=== PATIENT | female | born 1960 | race African-American/Black ===

== ENCOUNTER 2017-10-05 05:49 | Day surgery (SDC) | payer OTHER ==
[~2017-10-05] VITALS: Ht 160 cm; Wt 85.5 kg
[~2017-10-05 05:49] MED LIST: ALBU8.5H3 IH; ASPI-825 PO; BUPR100 PO; FLUT1DIS5 IH; GABA600T PO; LISI10TA7 PO; METF-444 PO; OMEP20 PO
[2017-10-05] MEDS ORDERED: EPINEPHrine 1:10,000 [1 MG/10 ML] SYRINGE IVP ONE (05:50)
[2017-10-05] MEDS ORDERED: LIDOCAINE HCL 2% 30 ML JELLY TP ONE (05:50)
[2017-10-05] MEDS ORDERED: LIDOCAINE HCL 4% 50 ML SOLUTION TP ONE (05:50)
[2017-10-05] MEDS ORDERED: BENZOCAINE 20% 50 MCG/SPRAY 57 GM TP ONE (05:50)
[2017-10-05] MEDS ORDERED: SODIUM CHLORIDE 0.9% 1,000 ML IV ONE ×2 (05:55→06:45)
[2017-10-05 06:55] LABS: GLUCOMETER DEV NAME(LOC) SDS 5; GLUCOSE,POINT OF CARE 142 MG/DL (70-110)
[2017-10-05] MEDS ORDERED: MIDAZOLAM HCL 2 MG/2 ML VIAL ONE (08:22)
[2017-10-05] MEDS ORDERED: FentaNYL CITRATE-PF 100 MCG/2 ML VIAL ONE (08:22)
[2017-10-05] MEDS ORDERED: MethylPREDNISolone SOD SUCC 125 MG/2 ML VIAL ONE (08:59)
[2017-10-05] MEDS ORDERED: MethylPREDNISolone SOD SUCC 125 MG/2 ML VIAL IVP ONE (09:00)
[2017-10-05] MEDS ORDERED: OXYGEN THERAPY IH SCH (20:00)
== END 2017-10-05 10:20 | disposition home or self-care (01) ==
LOC: SURGERY 05:49
PROVIDERS: ATTEND Internal Medicine Critical Care Medicine
DX: J38.4 Edema of larynx (principal); B37.0 Candidal stomatitis; J84.111 Idiopathic interstitial pneumonia, not otherwise specified; F17.210 Nicotine dependence, cigarettes, uncomplicated; E11.9 Type 2 diabetes mellitus without complications; J43.9 Emphysema, unspecified; Z90.710 Acquired absence of both cervix and uterus; Z88.3 Allergy status to other anti-infective agents; Z79.891 Long term (current) use of opiate analgesic; Z79.84 Long term (current) use of oral hypoglycemic drugs; Z72.89 Other problems related to lifestyle; Z79.82 Long term (current) use of aspirin; Z87.01 Personal history of pneumonia (recurrent); Z88.8 Allergy status to other drugs, medicaments and biological substances; Z79.899 Other long term (current) drug therapy; Z98.890 Other specified postprocedural states
CPT/HCPCS: 31623; 31624; 71045; 82962; 87015; 87070; 87077; 87186; 87205; 87206; 87220; 88108; 88312; J0171; J2250; J2930; J3010; J7030

== ENCOUNTER 2017-10-07 10:01 | Emergency (ER) | payer OTHER ==
[~2017-10-07] VITALS: Ht 154.9 cm; Wt 84.1 kg
[~2017-10-07 10:01] MED LIST changes: -ASPI-825 PO; -LISI10TA7 PO
[2017-10-07 10:10] VITALS: BP 127/84
[2017-10-07] MEDS ORDERED: METHOCARBAMOL 500 MG TABLET PO ONE (10:15)
[2017-10-07] MEDS ORDERED: KETOROLAC TROMETHAMINE 60 MG/2 ML VIAL IM ONE (10:15)
[2017-10-07 10:21] LABS: GLUCOSE,POINT OF CARE 146 MG/DL (70-110)
== END 2017-10-07 10:58 | disposition home or self-care (01) ==
LOC: EMS 10:02
DX: S39.012A Strain of muscle, fascia and tendon of lower back, initial encounter (principal); R73.9 Hyperglycemia, unspecified; F17.210 Nicotine dependence, cigarettes, uncomplicated; D25.9 Leiomyoma of uterus, unspecified; Z79.4 Long term (current) use of insulin; Z79.899 Other long term (current) drug therapy; Z88.8 Allergy status to other drugs, medicaments and biological substances; X50.1XXA Overexertion from prolonged static or awkward postures, initial encounter; Y93.89 Activity, other specified; Y92.89 Other specified places as the place of occurrence of the external cause; Y99.8 Other external cause status
CPT/HCPCS: 82962; 96372; 99283; J1885

== ENCOUNTER 2017-11-16 11:46 | Emergency (ER) | payer OTHER ==
[~2017-11-16] VITALS: Ht 154.9 cm; Wt 84.1 kg
[2017-11-16 12:05] LABS: GLUCOSE,POINT OF CARE 188 MG/DL (70-110)
[2017-11-16] MEDS ORDERED: IPRATROPIUM BROMIDE 0.5 MG/2.5 ML NEB SOLUTION NEB ONE (13:45)
[2017-11-16] MEDS ORDERED: ALBUTEROL SULFATE 2.5 MG/0.5 ML NEB SOLUTION NEB ONE (13:45)
[2017-11-16 14:58] VITALS: BP 110/67
== END 2017-11-16 15:00 | disposition home or self-care (01) ==
LOC: EMS 11:47
DX: J44.1 Chronic obstructive pulmonary disease with (acute) exacerbation (principal); F17.210 Nicotine dependence, cigarettes, uncomplicated; E11.9 Type 2 diabetes mellitus without complications; Z91.041 Radiographic dye allergy status; Z79.84 Long term (current) use of oral hypoglycemic drugs; Z79.899 Other long term (current) drug therapy; Z90.710 Acquired absence of both cervix and uterus; Z87.42 Personal history of other diseases of the female genital tract
CPT/HCPCS: 94640; 99283

== ENCOUNTER 2018-04-07 22:16 | Emergency (ER) | payer OTHER ==
[~2018-04-07] VITALS: Ht 154.9 cm; Wt 84.1 kg
[2018-04-07 22:48] LABS: GLUCOSE,POINT OF CARE 200 MG/DL (70-110)
[2018-04-08] MEDS ORDERED: IBUPROFEN 800 MG TABLET PO ONE (02:45)
[2018-04-08 03:06] VITALS: BP 132/70
== END 2018-04-08 03:57 | disposition home or self-care (01) ==
LOC: EMS 22:17
DX: S00.12XA Contusion of left eyelid and periocular area, initial encounter (principal); E11.9 Type 2 diabetes mellitus without complications; J44.9 Chronic obstructive pulmonary disease, unspecified; K21.9 Gastro-esophageal reflux disease without esophagitis; F32.9 Major depressive disorder, single episode, unspecified; F17.210 Nicotine dependence, cigarettes, uncomplicated; Z90.710 Acquired absence of both cervix and uterus; Z79.899 Other long term (current) drug therapy; Z91.041 Radiographic dye allergy status; W10.8XXA Fall (on) (from) other stairs and steps, initial encounter; Y93.89 Activity, other specified; Y92.89 Other specified places as the place of occurrence of the external cause; Y99.8 Other external cause status
CPT/HCPCS: 70450; 70486

== ENCOUNTER 2019-02-12 11:55 | Emergency (ER) | payer OTHER ==
[~2019-02-12] VITALS: Ht 154.9 cm; Wt 84.1 kg
[2019-02-12 13:32] LABS: BASOPHILS % (AUTO) 0.3 % (0.0-2.0); EOSINOPHILS % (AUTO) 0.9 % (1.0-6.0); HEMOGLOBIN 15.1 g/dL (12.0-16.0); LYMPHOCYTES # (AUTO) 1.4 K/uL (1.0-4.8); LYMPHOCYTES % (AUTO) 13.2 % (22.0-44.0); MEAN CORPUSCULAR HGB CONC 33.5 G/dL (31.0-37.0); MEAN CORPUSCULAR VOLUME 93 fL (80-100); MONOCYTES # (AUTO) 0.3 K/uL (0.1-1.0); MONOCYTES % (AUTO) 3.1 % (2.0-9.0); NEUTROPHILS # (AUTO) 8.9 K/uL (1.8-7.7); NEUTROPHILS % (AUTO) 82.5 % (40.0-70.0); PLATELET COUNT (AUTO) 270 K/uL (150-450); RED BLOOD CELL COUNT(AUTO) 4.87 MIL/uL (4.00-5.20); RED CELL DISTRIBUTION WIDTH 13.7 % (11.5-14.5)
[2019-02-12 14:01] LABS: ANION GAP 11 mmol/L (8-16); CALCIUM, TOTAL 9.1 mg/dL (8.8-10.5); CARBON DIOXIDE 25 mmol/L (22-29); CHLORIDE 103 mmol/L (98-107); CREATININE 0.88 mg/dL (0.60-1.30); GLOMERULAR FILTR. RATE CALC > 60 mL/min (>60); GLUCOSE,RANDOM 190 mg/dL (70-110); POTASSIUM 3.9 mmol/L (3.5-5.1); SODIUM SERUM 139 mmol/L (136-145); UREA NITROGEN, BLOOD 7 mg/dL (7-18)
[2019-02-12 14:03] LABS: B-TYPE NATRIURETIC PEPTIDE 13 pg/mL (0-100)
[2019-02-12 14:09] LABS: ALANINE AMINOTRANSFERASE 26 U/L (12-78); ALBUMIN 3.8 g/dL (3.4-5.0); ALKALINE PHOSPHATASE 109 U/L (46-116); ASPARTATE AMINOTRANSFERASE 13 U/L (15-37); BILIRUBIN,TOTAL 0.4 mg/dL (0.1-1.0); TOTAL PROTEIN, SERUM 7.4 g/dL (6.4-8.2)
[2019-02-12 14:49] VITALS: BP 127/74
== END 2019-02-12 15:09 | disposition home or self-care (01) ==
LOC: EMS 11:56
DX: J45.909 Unspecified asthma, uncomplicated (principal); R03.0 Elevated blood-pressure reading, without diagnosis of hypertension; E11.9 Type 2 diabetes mellitus without complications; F32.9 Major depressive disorder, single episode, unspecified; F17.210 Nicotine dependence, cigarettes, uncomplicated; Z88.8 Allergy status to other drugs, medicaments and biological substances; Z79.899 Other long term (current) drug therapy
CPT/HCPCS: 93005

== ENCOUNTER 2020-06-20 11:43 | Emergency (ER) | payer OTHER ==
[~2020-06-20] VITALS: Ht 154.9 cm; Wt 84.1 kg
[~2020-06-20 11:43] MED LIST changes: +BUPR-121 PO; -BUPR100 PO
[2020-06-20 14:25] VITALS: BP 127/71
[2020-06-20] MEDS: IBUPROFEN 600 MG TABLET PO ONE (14:33)
== END 2020-06-20 14:36 | disposition home or self-care (01) ==
LOC: EMS 12:24
DX: M54.2 Cervicalgia (principal); M25.512 Pain in left shoulder; M54.9 Dorsalgia, unspecified; J44.9 Chronic obstructive pulmonary disease, unspecified; F32.9 Major depressive disorder, single episode, unspecified; E11.9 Type 2 diabetes mellitus without complications; D25.9 Leiomyoma of uterus, unspecified; V49.9XXA Car occupant (driver) (passenger) injured in unspecified traffic accident, initial encounter; Y93.89 Activity, other specified; Y92.89 Other specified places as the place of occurrence of the external cause; Y99.8 Other external cause status
CPT/HCPCS: 99283

== ENCOUNTER 2021-04-24 05:53 | Day surgery (SDC) | payer OTHER ==
[~2021-04-24] VITALS: Ht 154.9 cm; Wt 75.0 kg
[2021-04-24] MEDS ORDERED: SODIUM CHLORIDE 0.9% 1,000 ML IV ONE (06:30)
[2021-04-24 06:54] LABS: COVID AG,FIA SOURCE NASAL SWAB
[2021-04-24] MEDS ORDERED: FentaNYL CITRATE PF 100 MCG/2 ML VIAL ONE (07:24)
[2021-04-24] MEDS ORDERED: MIDAZOLAM HCL 5 MG/ML VIAL ONE (07:25)
[2021-04-24 08:01] LABS: GLUCOMETER DEV NAME(LOC) SDS.; GLUCOSE,POINT OF CARE 88 MG/DL (70-110)
[2021-04-24] MEDS ORDERED: MethylPREDNISolone SOD SUCC 125 MG/2 ML VIAL ONE (09:06)
[2021-04-24] MEDS ORDERED: MethylPREDNISolone SOD SUCC 125 MG/2 ML VIAL IVP ONE (09:15)
[2021-04-24] MEDS ORDERED: OXYGEN THERAPY IH SCH (20:00)
== END 2021-04-24 11:15 | disposition home or self-care (01) ==
LOC: SURGERY 05:53
PROVIDERS: ATTEND Internal Medicine Critical Care Medicine
DX: J38.4 Edema of larynx (principal); B37.0 Candidal stomatitis; E11.9 Type 2 diabetes mellitus without complications; Z79.899 Other long term (current) drug therapy; Z90.710 Acquired absence of both cervix and uterus; Z98.890 Other specified postprocedural states
CPT/HCPCS: 31623; 31624; 71045; 82962; 87015; 87070; 87101; 87206; 87220; 87426; 88112; 88184; 88185; 88312; C9803; J2250; J2930; J3010

== ENCOUNTER 2021-06-02 09:53 | Emergency (ER) | payer OTHER ==
[~2021-06-02] VITALS: Ht 162.6 cm; Wt 96.0 kg
[~2021-06-02 09:53] MED LIST changes: -BUPR-121 PO; +BUPR-345 PO
[2021-06-02] MEDS ORDERED: ACETAMINOPHEN 500 MG TABLET PO ONE (12:15)
[2021-06-02] MEDS ORDERED: IBUPROFEN 600 MG TABLET PO ONE (12:15)
[2021-06-02 13:49] VITALS: BP 117/65
[2021-06-02] MEDS ORDERED: IBUP-2071 PO (13:53)
[2021-06-02] MEDS ORDERED: HYDR30OI13 TP (13:54)
== END 2021-06-02 14:22 | disposition home or self-care (01) ==
LOC: EMS 09:54
DX: S40.861A Insect bite (nonvenomous) of right upper arm, initial encounter (principal); S90.861A Insect bite (nonvenomous), right foot, initial encounter; J45.909 Unspecified asthma, uncomplicated; F32.9 Major depressive disorder, single episode, unspecified; E11.9 Type 2 diabetes mellitus without complications; K21.9 Gastro-esophageal reflux disease without esophagitis; F17.210 Nicotine dependence, cigarettes, uncomplicated; Z90.710 Acquired absence of both cervix and uterus; Z88.8 Allergy status to other drugs, medicaments and biological substances; Z79.84 Long term (current) use of oral hypoglycemic drugs; W57.XXXA Bitten or stung by nonvenomous insect and other nonvenomous arthropods, initial encounter; Y93.89 Activity, other specified; Y92.89 Other specified places as the place of occurrence of the external cause; Y99.8 Other external cause status
CPT/HCPCS: 82962; 99283

== ENCOUNTER 2022-09-13 07:21 | Day surgery (SDC) | payer OTHER ==
[~2022-09-13] VITALS: Ht 154.9 cm; Wt 74.9 kg
[~2022-09-13 07:21] MED LIST changes: +HYDR30OI13 TP; +IBUP-1493 PO; +SODIUM CHLORIDE 0.9% 1,000 ML IV ONE
[2022-09-13] MEDS ORDERED: ALBUTEROL SULFATE 2.5 MG/0.5 ML NEB SOLUTION NEB ONE (07:22)
[2022-09-13] MEDS ORDERED: BENZOCAINE 20% 50 MCG/SPRAY 57 GM TP ONE (07:22)
[2022-09-13] MEDS ORDERED: LIDOCAINE 2% 11 ML JELLY TP ONE (07:22)
[2022-09-13] MEDS ORDERED: LIDOCAINE 4% 50 ML SOLUTION TP ONE (07:22)
[2022-09-13] MEDS ORDERED: FentaNYL CITRATE PF 100 MCG/2 ML VIAL ONE (08:13)
[2022-09-13] MEDS ORDERED: MIDAZOLAM HCL 2 MG/2 ML VIAL ONE (08:14)
[2022-09-13 08:31] LABS: GLUCOMETER DEV NAME(LOC) SDS.
[2022-09-13] MEDS ORDERED: MethylPREDNISolone SOD SUCC 125 MG/2 ML VIAL IVP ONE (10:15)
== END 2022-09-13 11:30 | disposition home or self-care (01) ==
LOC: SURGERY 07:21
PROVIDERS: ATTEND Internal Medicine Critical Care Medicine
DX: J38.4 Edema of larynx (principal); B37.0 Candidal stomatitis; F17.210 Nicotine dependence, cigarettes, uncomplicated; M19.90 Unspecified osteoarthritis, unspecified site; J44.9 Chronic obstructive pulmonary disease, unspecified; E11.40 Type 2 diabetes mellitus with diabetic neuropathy, unspecified; Z79.899 Other long term (current) drug therapy; Z91.041 Radiographic dye allergy status; Z98.890 Other specified postprocedural states
CPT/HCPCS: 31623; 88112; 82962; 87206; 87101; 87220; 87070; 31624; 71045; 87015; J3010; J2250; J2930; Q9967; J7613; Z7610

== ENCOUNTER 2023-10-26 07:05 | Day surgery (SDC) | payer OTHER ==
[~2023-10-26] VITALS: Ht 154.9 cm; Wt 63.6 kg
[~2023-10-26 07:05] MED LIST changes: +ALBU18HF12 PO; -ALBU8.5H3 IH; +BACL20TA PO; +BUPR-113 PO; -BUPR-345 PO; +CETI10TA58 PO; +CHOL500013 PO; +DICL100G60 TP; +FAMO40TA7 PO; +FLUT16H NASAL; -FLUT1DIS5 IH; +GABA-1554 PO; -GABA600T PO; -HYDR30OI13 TP; -IBUP-1493 PO; +IBUP-2076 PO; +IBUP-2077 PO; +IPRA3AMP24 IH; +LISI2.5T13 PO; -METF-444 PO; +METF-446 PO; -OMEP20 PO; +PRAV40TA4 PO; -SODIUM CHLORIDE 0.9% 1,000 ML IV ONE; +SODIUM CHLORIDE 0.9% 1,000 ML ONE
[2023-10-26] MEDS ORDERED: LIDOCAINE 4% 50 ML SOLUTION TP ONE (07:06)
[2023-10-26] MEDS ORDERED: LIDOCAINE 2% 11 ML JELLY TP ONE (07:06)
[2023-10-26] MEDS ORDERED: BENZOCAINE 20% 50 MCG/SPRAY 57 GM TP ONE (07:06)
[2023-10-26] MEDS ORDERED: ALBUTEROL SULFATE 2.5 MG/0.5 ML NEB SOLUTION NEB ONE (07:06)
[2023-10-26 08:16] LABS: GLUCOMETER DEV NAME(LOC) SDS.; GLUCOSE,POINT OF CARE 121 MG/DL (70-110)
[2023-10-26] MEDS: SODIUM CHLORIDE 0.9% 1,000 ML IV ONE (08:18)
[2023-10-26] MEDS ORDERED: FentaNYL CITRATE PF 100 MCG/2 ML VIAL ONE (08:35)
[2023-10-26] MEDS ORDERED: MIDAZOLAM HCL 2 MG/2 ML VIAL ONE (08:35)
[2023-10-26 10:00] VITALS: PULSE 79; RESP 20; O2SAT 96
[2023-10-26] MEDS ORDERED: MethylPREDNISolone SOD SUCC 125 MG/2 ML VIAL ONE (10:48)
[2023-10-26] MEDS: MethylPREDNISolone SOD SUCC 125 MG/2 ML VIAL IVP ONE (10:55)
== END 2023-10-26 13:15 | disposition home or self-care (01) ==
LOC: SURGERY 07:05
PROVIDERS: ATTEND Internal Medicine Critical Care Medicine
DX: R05.3 Chronic cough (principal); R06.2 Wheezing; R49.0 Dysphonia; R04.2 Hemoptysis; R06.1 Stridor; J84.9 Interstitial pulmonary disease, unspecified; J44.9 Chronic obstructive pulmonary disease, unspecified; G62.9 Polyneuropathy, unspecified; M19.90 Unspecified osteoarthritis, unspecified site; Z91.041 Radiographic dye allergy status
CPT/HCPCS: 31623; 82962; 87206; 87101; 87220; 87070; 88108; 31624; 71045; 87015; J3010; J2250; J2919; J7030; J7613; Z7610

== ENCOUNTER 2024-04-07 07:52 | Emergency (ER) | payer OTHER ==
[~2024-04-07] VITALS: Ht 154.9 cm; Wt 60.0 kg
[~2024-04-07 07:52] MED LIST changes: -SODIUM CHLORIDE 0.9% 1,000 ML ONE
[2024-04-07 08:01] VITALS: TEMP 98.3
[2024-04-07] MEDS: IBUPROFEN 600 MG TABLET PO ONE (08:40)
[2024-04-07] MEDS: ACETAMINOPHEN 500 MG TABLET PO ONE (08:40)
[2024-04-07 09:26] VITALS: BP 132/80; PULSE 88; RESP 16; O2SAT 99
[2024-04-07 10:07] LABS: APPEARANCE,URINE HAZY (CLEAR); BILIRUBIN,URINE NEGATIVE (NEGATIVE); COLOR,URINE YELLOW (YELLOW); GLUCOSE, URINE (UA) NEGATIVE (NEGATIVE); KETONES,URINE TRACE mg/dL (NEGATIVE); LEUKOCYTE ESTERASE ,URINE LARGE (NEGATIVE); NITRATE,URINE NEGATIVE (NEGATIVE); OCCULT BLOOD,URINE SMALL (NEGATIVE); PH,URINE 5.5 (5.0-8.0); PROTEIN,URINE 30-70 mg/dL (NEGATIVE); SPECIFIC GRAVITIY, URINE 1.025 (1.003-1.030); UROBILINOGEN,URINE <=1.0 mg/dL (<=1.0)
[2024-04-07 10:11] LABS: BACTERIA,URINE Moderate /HPF (None Seen); SQUAMOUS EPITHELIAL CELL,UR Few /LPF (None Seen)
[2024-04-07] MEDS ORDERED: CEPH-558 PO (13:55)
== END 2024-04-07 09:26 | disposition home or self-care (01) ==
LOC: EMS 07:54
DX: N39.0 Urinary tract infection, site not specified (principal); M25.561 Pain in right knee; N89.8 Other specified noninflammatory disorders of vagina; E11.9 Type 2 diabetes mellitus without complications; F32.A Depression, unspecified; K21.9 Gastro-esophageal reflux disease without esophagitis; J44.9 Chronic obstructive pulmonary disease, unspecified; F17.210 Nicotine dependence, cigarettes, uncomplicated; Z88.8 Allergy status to other drugs, medicaments and biological substances; Z91.041 Radiographic dye allergy status; Z79.84 Long term (current) use of oral hypoglycemic drugs; Z90.710 Acquired absence of both cervix and uterus; Z79.899 Other long term (current) drug therapy
CPT/HCPCS: 81001; 82962; 87086; 87491; 87591; 99283; 99406